=== PATIENT | female | born 1975 | race Caucasian/White ===

== ENCOUNTER 2016-09-15 02:34 | Emergency (ER) | payer SELFPAY ==
[2016-09-15 02:43] VITALS: O2SAT 100
[2016-09-15] MEDS ORDERED: Phenergan 25 MG INJ IV ONE (02:49)
[2016-09-15] MEDS ORDERED: DILAUDID 1 MG/ML INJECTION IV ONE ×2 (02:49→04:43)
--- NOTE | 2016-09-15 02:51 | ERPHSYRPT ---
- History of Present Illness Time Seen by Provider: 09/15/16 02:40 Historian: patient Exam Limitations: no limitations Patient Subjective Stated Complaint: states that she has been having RLQ abd pain all day long with urine hesitency and dysuria - states that the pain is getting worse in the night - reports 1 episode of vomiting x 2 hours ago Triage Nursing Assessment: ambulatory to treatment area - steady gait - moves all extremities with equal strength. alert/oriented - grimmacing affect. skin pwd - no rash/injury. resps easy - non-labored. abd guarding Physician History: FOR THE PAST 17 HOURS PT HAS HAD INTERMITTENT SHARP RIGHT SIDED ABDOMINAL PAIN LASTING UP TO 2 HOURS PER EPISODE WITH VOMITING X1 AND URINARY HESITANCY. LAST BM WAS YESTERDAY & WNL. Allergies/Adverse Reactions: No Known Drug Allergies Allergy (Unverified 09/15/16 02:38) Hx Tetanus, Diphtheria Vaccination/Date Given: Yes Hx Influenza Vaccination/Date Given: No Hx Pneumococcal Vaccination/Date Given: No Immunizations Up to Date: Yes - Review of Systems Constitutional: No Fever Respiratory: No Dyspnea Cardiac: No Chest Pain Abdominal/Gastrointestinal: Abdominal Pain, Vomiting Genitourinary Symptoms: Hesitancy Endocrine: No Excessive Sweating All Other Systems: Reviewed and Negative - Past Medical History Pertinent Past Medical History: No - Past Surgical History Past Surgical History: Yes Gastrointestinal: No Pertinent History Female Surgical History: Tubal Ligation - Social History Smoking Status: Current every day smoker Exposure to second hand smoke: No Drug Use: none Patient Lives Alone: Yes - Female History Hx Last Menstrual Period: 1 week - Nursing Vital Signs Nursing Vital Signs: Initial Vital Signs Temperature 97.9 F Temperature Source Oral Pulse Rate 84 Respiratory Rate 16 Blood Pressure [Right Arm] 121/63 Pain Intensity 8 - Physical Exam General Appearance: mild distress, alert Eye Exam: PERRL/EOMI, eyes nml inspection Ears, Nose, Throat Exam: TMs normal, pharynx normal, moist mucous membranes Neck Exam: normal inspection Respiratory Exam: lungs clear Cardiovascular Exam: normal heart sounds Gastrointestinal/Abdomen Exam: soft, normal bowel sounds, tenderness (MILD SUPRAPUBIC/RLQ TENDERNESS) Back Exam: normal range of motion Extremity Exam: normal inspection, No pedal edema Neurologic Exam: alert, cooperative Skin Exam: warm, dry SpO2 Interpretation: normal SpO2: 100 Oxygen Delivery: Room Air - Course Nursing assessment & vital signs reviewed: Yes - CT Exams Abdomen/Pelvis CT Interpretation: Tele-radiologist Report (MILD RIGHT RENAL HYDRONEPHROSIS AND PROXIMAL RIGHT HYDROURETER. DIFFERENTIAL INCLUDES RECENTLY PASSED STONE.) Ordered Tests: Active Orders 24 hr Category Date Time Status Clean Catch Urine Specimen STAT Care 09/15/16 02:49 Active IV Insertion STAT Care 09/15/16 02:49 Active ABDOMEN AND PELVIS W/0 CONTRAS [CT] Stat Exams 09/15/16 02:50 Taken AMYLASE Stat Lab 09/15/16 03:09 Completed CBC W DIFF Stat Lab 09/15/16 03:09 Completed CMP Stat Lab 09/15/16 03:09 Completed HCG QUALITATIVE,SERUM Stat Lab 09/15/16 03:09 Completed LIPASE Stat Lab 09/15/16 03:09 Completed MAG [MAGNESIUM] Stat Lab 09/15/16 03:09 Completed UA Stat Lab 09/15/16 02:58 Completed Urine Triage Profile Stat Lab 09/15/16 02:58 Completed Medication Summary Generic Name Dose Route Start Last Admin Trade Name Freq PRN Reason Stop Dose Admin Sodium Chloride 1,000 mls @ 100 mls/hr 09/15/16 03:00 09/15/16 03:05 Sodium Chloride 0.9% 1000 Ml IV 10/15/16 02:59 100 mls/hr .Q10H KELLE Administration Discontinued Medications Generic Name Dose Route Start Last Admin Trade Name Freq PRN Reason Stop Dose Admin Hydromorphone HCl 1 mg 09/15/16 02:49 09/15/16 03:05 Dilaudid 1 Mg/Ml Injection IV 09/15/16 02:50 1 mg STAT ONE Administration Hydromorphone HCl Confirm 09/15/16 02:58 Dilaudid 1 Mg/Ml Injection Administered 09/15/16 02:59 Dose 1 mg .ROUTE .STK-MED ONE Sodium Chloride Confirm 09/15/16 02:58 Sodium Chloride 0.9% 1000 Ml Administered 09/15/16 02:59 Dose 1,000 mls @ ud .ROUTE .STK-MED ONE Promethazine HCl 12.5 mg 09/15/16 02:49 09/15/16 03:05 Phenergan 25 Mg Inj IV 09/15/16 02:50 12.5 mg STAT ONE Administration Promethazine HCl Confirm 09/15/16 02:58 Phenergan 25 Mg Inj Administered 09/15/16 02:59 Dose 25 mg .ROUTE .STK-MED ONE Lab/Rad Data: Laboratory Result Diagrams 09/15/16 03:09 09/15/16 03:09 Laboratory Results 09/15/16 09/15/16 09/15/16 Range/Units 03:09 03:09 03:09 WBC (4.0-10.5) K/mm3 RBC (4.1-5.4) M/mm3 Hgb (12.0-16.0) gm/dl Hct (35-47) % MCV (78-100) fl MCH (26-32) pg MCHC (32-36) g/dl RDW (11.5-14.0) % Plt Count (150-450) K/mm3 MPV (6-9.5) fl Gran % (36.0-66.0) % Lymphocytes % (24.0-44.0) % Monocytes % (0.0-12.0) % Eosinophils % (0.00-5.0) % Basophils % (0.0-0.4) % Basophils # (0-0.4) Sodium 141 (136-145) mEq/L Potassium 3.5 (3.5-5.1) mEq/L Chloride 100 (98-107) mEq/L Carbon Dioxide 25.4 (21-32) mEq/L Anion Gap 18.6 H (5-15) MEQ/L BUN 18 (9-20) mg/dL Creatinine 0.75 (0.55-1.30) mg/dl Estimated GFR > 60 ML/MIN Glucose 90 (70-110) MG/DL Calcium 9.7 (8.5-10.1) mg/dL Magnesium 2.1 (1.8-2.4) mg/dL Total Bilirubin 0.6 (0.2-1.0) mg/dL AST 20 (15-37) U/L ALT 18 (12-78) U/L Alkaline Phosphatase 83 (46-116) U/L Serum Total Protein 8.7 H (6.4-8.2) gm/dL Albumin 4.9 (3.4-5.0) g/dL Amylase 45 (25-115) U/L Lipase 92 (73-393) U/L Serum , Qual NEGATIVE (Negative) Ur Collection Type Urine Color (YELLOW) Urine Appearance (CLEAR) Urine pH (5-6) Ur Specific Odd (1.005-1.025) Urine Protein (Negative) Urine Glucose (UA) (NEGATIVE) mg/dL Urine Ketones (NEGATIVE) Urine Nitrite (NEGATIVE) Urine Bilirubin (NEGATIVE) Urine Urobilinogen (0-1) mg/dL Urine WBC (Auto) (NEGATIVE) Urine RBC (Auto) (0-5) Walter/ul Urine Opiates Level (NEGATIVE) Ur Methadone (NEGATIVE) Urine Barbiturates (NEGATIVE) Ur Phencyclidine (PCP) (NEGATIVE) Urine Amphetamine (NEGATIVE) U Benzodiazepine Level (NEGATIVE) Urine Cocaine (NEGATIVE) Urine Marijuana (THC) (NEGATIVE) Specimen Received 09/15/16 09/15/16 09/15/16 Range/Units 03:09 02:58 02:58 WBC 9.1 (4.0-10.5) K/mm3 RBC 4.48 (4.1-5.4) M/mm3 Hgb 13.4 (12.0-16.0) gm/dl Hct 40.5 (35-47) % MCV 90.4 (78-100) fl MCH 29.9 (26-32) pg MCHC 33.1 (32-36) g/dl RDW 15.6 H (11.5-14.0) % Plt Count 414 (150-450) K/mm3 MPV 8.6 (6-9.5) fl Gran % 53.3 (36.0-66.0) % Lymphocytes % 34.0 (24.0-44.0) % Monocytes % 10.7 (0.0-12.0) % Eosinophils % 1.8 (0.00-5.0) % Basophils % 0.2 (0.0-0.4) % Basophils # 0.02 (0-0.4) Sodium (136-145) mEq/L Potassium (3.5-5.1) mEq/L Chloride (98-107) mEq/L Carbon Dioxide (21-32) mEq/L Anion Gap (5-15) MEQ/L BUN (9-20) mg/dL Creatinine (0.55-1.30) mg/dl Estimated GFR ML/MIN Glucose (70-110) MG/DL Calcium (8.5-10.1) mg/dL Magnesium (1.8-2.4) mg/dL Total Bilirubin (0.2-1.0) mg/dL AST (15-37) U/L ALT (12-78) U/L Alkaline Phosphatase (46-116) U/L Serum Total Protein (6.4-8.2) gm/dL Albumin (3.4-5.0) g/dL Amylase (25-115) U/L Lipase (73-393) U/L Serum , Qual (Negative) Ur Collection Type CLEAN CATCH Urine Color YELLOW (YELLOW) Urine Appearance SLIGHTLY CLOUDY (CLEAR) Urine pH 5.5 (5-6) Ur Specific Odd >=1.030 (1.005-1.025) Urine Protein NEGATIVE (Negative) Urine Glucose (UA) NEGATIVE (NEGATIVE) mg/dL Urine Ketones NEGATIVE (NEGATIVE) Urine Nitrite NEGATIVE (NEGATIVE) Urine Bilirubin NEGATIVE (NEGATIVE) Urine Urobilinogen 0.2 (0-1) mg/dL Urine WBC (Auto) NEGATIVE (NEGATIVE) Urine RBC (Auto) NEGATIVE (0-5) Walter/ul Urine Opiates Level POS. (NEGATIVE) Ur Methadone NEG. (NEGATIVE) Urine Barbiturates NEG. (NEGATIVE) Ur Phencyclidine (PCP) NEG. (NEGATIVE) Urine Amphetamine POS. (NEGATIVE) U Benzodiazepine Level POS. (NEGATIVE) Urine Cocaine NEG. (NEGATIVE) Urine Marijuana (THC) NEG. (NEGATIVE) Specimen Received [id number] - Departure Time of Disposition: 04:39 Departure Disposition: Home Clinical Impression: RIGHT RENAL COLIC, ABDOMINAL PAIN, VOMITING Condition: Fair Critical Care Time: No Instructions: Abdominal Pain-Adult, Vomiting -- Adult Additional Instructions: FOLLOW UP WITH PRIVATE DOCTOR TOMORROW. Prescriptions: Promethazine HCl 25 mg [Phenergan 25 mg] 25 mg PO Q4H PRN PRN #14 tablet PRN Reason: Nausea/Vomiting
[2016-09-15] MEDS ORDERED: Sodium Chloride 0.9% 1000 ML 1,000 ML ONE (02:58)
[2016-09-15] MEDS ORDERED: Phenergan 25 MG INJ ONE (02:58)
[2016-09-15] MEDS ORDERED: DILAUDID 1 MG/ML INJECTION ONE ×2 (02:58→04:46)
[2016-09-15] MEDS ORDERED: Sodium Chloride 0.9% 1000 ML 1,000 ML IV SCH (03:00)
[2016-09-15 03:07] LABS: COMPLETE URINE MICROSCOPIC? NO; Collection Type CLEAN CATCH; Ph 5.5 (5-6)
[2016-09-15 03:12] LABS: BASOPHIL % 0.2 % (0.0-0.4); Eosinophil % 1.8 % (0.00-5.0); Granulocytes % 53.3 % (36.0-66.0); Mean Cell Volume 90.4 fl (78-100); Mean Corpuscular Hemoglobin 29.9 pg (26-32); Mean Platelet Volume 8.6 fl (6-9.5); Monocytes % 10.7 % (0.0-12.0); Platelet Count 414 K/mm3 (150-450); Red Blood Count 4.48 M/mm3 (4.1-5.4); Red Cell Distribution Width 15.6 % (11.5-14.0); White Blood Count 9.1 K/mm3 (4.0-10.5)
[2016-09-15 03:31] LABS: ALBUMIN 4.9 g/dL (3.4-5.0); ALKALINE PHOSPHATASE 83 U/L (46-116); ANION GAP 18.6 MEQ/L (5-15); BILIRUBIN,TOTAL 0.6 mg/dL (0.2-1.0); BLOOD UREA NITROGEN 18 mg/dL (9-20); CHLORIDE 100 mEq/L (98-107); Carbon Dioxide 25.4 mEq/L (21-32); Glucose 90 MG/DL (70-110); LIPASE 92 U/L (73-393); Potassium 3.5 mEq/L (3.5-5.1); SGOT/AST 20 U/L (15-37); SGPT/ALT 18 U/L (12-78); SODIUM 141 mEq/L (136-145); Total Protein 8.7 gm/dL (6.4-8.2)
[2016-09-15 05:01] VITALS: BP 117/60; PULSE 70
--- NOTE | 2016-09-15 09:02 | XRAY ---
Indication: Right lower quadrant pain, emesis, and dysuria. Multiple contiguous axial images obtained through the abdomen and pelvis without contrast as ordered. Comparison: None Lung bases are essentially clear. Heart is not enlarged. Noncontrasted stomach and bowel loops appear nonobstructed. Mild scattered colonic fecal debris. Appendix demonstrates intraluminal appendicoliths without appendicitis. No free fluid/air. Bilateral pelvic phleboliths. Right ureter minimally prominent without obvious ureteral calculus. Uterus is slightly prominent with endometrial cavity thickening. Remaining liver, gallbladder, pancreas, spleen, adrenal glands, kidneys, ureters, bladder, and aorta appear unremarkable for noncontrast exam. Osseous structures intact with lumbosacral Junction degenerative changes. Impression: 1. Right ureteral prominence which can be seen from recent passage of calculus. Correlate clinically. 2. Uterine prominence with endometrial cavity thickening. Correlate with patient's menstrual cycle. 3. Appendicoliths without appendicitis. Comment: Preliminary interpretation was made by [facility]. No critical discrepancy. CT DI 8.23
== END 2016-09-15 05:01 | disposition home or self-care (01) ==
LOC: ED 02:34
DX: N23 Unspecified renal colic (principal); R10.84 Generalized abdominal pain; R10.31 Right lower quadrant pain; R39.11 Hesitancy of micturition; R11.10 Vomiting, unspecified
CPT/HCPCS: 36415; 74176; 80053; 80307; 81002; 82150; 83690; 83735; 84703; 85025; 96360; 96361; 96374; 96375; 96376; 99283; J1170; J2550